=== PATIENT | male | born 2000 | race Two or more races ===

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

== ENCOUNTER 2019-05-03 20:38 | Emergency (ER) | payer SELFPAY ==
[~2019-05-03] VITALS: Ht 188 cm; Wt 99.8 kg
[~2019-05-03 20:38] MED LIST: IBUPROFEN600 MG ORAL
--- NOTE | 2019-05-03 20:40 | NUR ---
ED Nurse Note: Pt walked in c/o RT side headache with RT side pain. Pt stated 9/10 pain. 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 Pt denies trauma, heavy lifting. AAO x4, VSS at this time.
[2019-05-03 21:00] VITALS: BP 111/70
[2019-05-03] MEDS ORDERED: IBUPROFEN600 MG ORAL (21:11)
--- NOTE | 2019-05-03 21:12 | Emergency Room Report ---
History of Present Illness General Chief Complaint: Headache Source: Patient Present Illness HPI This is a 18-year-old male with no significant past medical history. He presents with complaint of headache, neck pain, back pain. Onset was about an hour ago after work. Pain is 8 out of 10. Mostly behind his eyes. [place] tired and weak. Subjective fever. No nausea no vomiting. Nothing made it better. Nothing made it worse. Allergies: Coded Allergies: ACETAMINOPHEN (Verified Allergy, Unknown, 10/29/16) Patient History Past Medical History: see triage record, old chart reviewed Past Surgical History: none Pertinent Family History: none Social History: Denies: smoking Immunizations: other Reviewed Nursing Documentation: PMH: Agreed; PSxH: Agreed Nursing Documentation-PMH Past Medical History: No Stated History Review of Systems Constitutional: Reports: fever, malaise Eye: Reports: eye pain; Denies: blurred vision ENT: Denies: ear pain, nose congestion, throat swelling Respiratory: Denies: cough, shortness of breath Cardiovascular: Denies: chest pain, palpitations Gastrointestinal: Denies: abdominal pain, diarrhea, nausea, vomiting Musculoskeletal: Reports: back pain; Denies: joint pain Skin: Denies: rash Neurological: Denies: headache, numbness Endocrine: Denies: increased thirst, increased urine Hematologic/Lymphatic: Denies: easy bruising All Other Systems: negative except mentioned in HPI Physical Exam Vital Signs Date Time Temp Pulse Resp B/P (MAP) Pulse Ox O2 Delivery O2 Flow Rate FiO2 05/03/19 20:42 98.2 81 18 111/70 (84) 96 Room Air Vitals normal Sp02 EP Interpretation: reviewed, normal General Appearance: well appearing, no apparent distress, alert Head: normocephalic, atraumatic Eyes: bilateral eye PERRL, bilateral eye EOMI ENT: hearing grossly normal, normal pharynx Neck: full range of motion, supple, no meningismus Respiratory: chest non-tender, lungs clear, normal breath sounds Cardiovascular #1: regular rate, rhythm, no murmur Gastrointestinal: normal bowel sounds, non tender, no mass, no organomegaly, no bruit, non-distended Musculoskeletal: back normal, gait/station normal, normal range of motion Psychiatric: mood/affect normal Medical Decision Making Diagnostic Impression: Primary Impression: Headache Qualified Codes: R51 - Headache ER Course Patient with headache. No evidence of meningitis, bleed, TIA or CVA. May be beginning of a viral illness. Will discharge home. Last Vital Signs Date Time Temp Pulse Resp B/P (MAP) Pulse Ox O2 Delivery O2 Flow Rate FiO2 05/03/19 20:42 98.2 81 18 111/70 (84) 96 Room Air Status: improved Disposition: HOME, SELF-CARE Condition: Stable Scripts Ibuprofen* (MOTRIN*) 600 Mg Tablet 600 MG ORAL THREE TIMES A DAY, #30 TAB 0 Refills Prov: Bruce Martinez MD 05/03/19 Patient Instructions: General Headache Without Cause Additional Instructions: Follow-up with your doctor in 2 to 3 days if not better. Increase fluids. Return if symptoms worsen. Bruce Martinez MD May 03, 2019 21:12
[2019-05-03] MEDS ORDERED: HYDROcodone/Acetamin 5/325 tab ORAL ONE (21:15)
[2019-05-03 21:26] VITALS: BP 111/70
--- NOTE | 2019-05-03 21:27 | NUR ---
ED Nurse Note: Pt cleared by health care Provider for discharge. DC instructions/prescription was given and explained to pt and verbalized understanding of teachings. All medical deviecs such as ID band removed. Pt is AAO x4, ambulatory and left with all personal belongings.
== END 2019-05-03 21:30 | disposition home or self-care (01) ==
LOC: EMR 21:10
DX: R51 Headache (principal); Z88.6 Allergy status to analgesic agent
CPT/HCPCS: 99282